=== PATIENT | female | born 1995 | race Caucasian/White ===

== ENCOUNTER 2021-07-21 21:14 | Emergency (ER) | payer BC, OTHER ==
[2021-07-21 21:41] VITALS: BP 148/67; PULSE 78; TEMP 99; BMI 24.5
[2021-07-21 22:37] LABS: HCG,QUALITATIVE URINE Negative
[2021-07-21 22:47] LABS: EPITHELIAL CELLS FEW /hpf
[2021-07-22] MEDS ORDERED: KETOROLAC TROMETHAMINE 30 MG/1 ML VIAL IVPUSH ONE (00:30)
[2021-07-22] MEDS ORDERED: KETOROLAC TROMETHAMINE 30 MG/1 ML VIAL ONE (00:40)
[2021-07-22 01:41] LABS: BASO % 0.6 % (0-2.0); EOS % 0.6 % (0-4.5); HEMATOCRIT 38.5 % (32.4-45.2); HEMOGLOBIN 12.8 GM/dL (10.7-15.3); LYMPH % 26.9 % (8-40); MCH 27.3 pg (25.7-33.7); MCHC 33.4 g/dl (32.0-36.0); MEAN CELL VOLUME 81.9 fl (80-96); MEAN PLT VOLUME 7.9 fl (7.5-11.1); MONO % 6.1 % (3.8-10.2); NEUT % 65.8 % (42.8-82.8); PLATELET COUNT 275 10^3/uL (134-434); RDW 13.8 % (11.6-15.6); WHITE BLOOD COUNT 7.9 K/mm3 (4.0-10.0)
[2021-07-22 02:12] LABS: BLOOD UREA NITROGEN 16.7 mg/dL (7-18); CHLORIDE 109 mmol/L (98-107); CO2 26 mmol/L (21-32); CREATININE 0.7 mg/dL (0.55-1.3); GLUCOSE,RANDOM 75 mg/dL (74-106); SODIUM 139 mmol/L (136-145)
[2021-07-22 02:13] LABS: ALBUMIN 3.8 g/dl (3.4-5.0); ALK PHOS 54 U/L (45-117); BILIRUBIN,TOTAL 0.2 mg/dL (0.2-1); CALCIUM 8.8 mg/dL (8.5-10.1); SGOT/AST 19 U/L (15-37); SGPT/ALT 22 U/L (13-61); TOT PROT 7.6 g/dl (6.4-8.2)
[2021-07-22 05:43] LABS: HIV INTERPRETATION NEGATIVE (NEGATIVE)
== END 2021-07-22 03:07 | disposition home or self-care (01) ==
LOC: FER 21:14
PROC: 3E033GC Introduction of Other Therapeutic Substance into Peripheral Vein, Percutaneous Approach (ICD-10-PCS; principal; 2021-07-21)
DX: N83.201 Unspecified ovarian cyst, right side (principal); R10.32 Left lower quadrant pain
CPT/HCPCS: 36415; 74177-TC; 76830-TC; 80053; 81003; 81015; 84703; 85025; 86780; 87086; 87389; 87491; 87591; 99285-25